=== PATIENT | male | born 1960 | race Caucasian/White ===

== ENCOUNTER 2016-09-19 08:41 | Day surgery (SDC) | payer BC ==
[~2016-09-19] VITALS: Ht 182.9 cm; Wt 111.6 kg
[2016-09-19] VITALS (404 sets, daily range): BP systolic 114–148; BP diastolic 68–93; PULSE 57–79; TEMP 98.1–98.4; O2SAT 87–100
[~2016-09-19 08:41] MED LIST: ASPIRIN 32325 MG/TAB PO; ASPIRIN 81M81 MG/TA2 PO; GLUCOPHAGE500 MG/TAB PO; HORIZANT600 MG PO; HUMALOG100 U/ML SQ; LANTUS100 U/ML SQ; LIPITOR 40MG TA40 MG PO; NEURONTIN600 MG/TAB PO; NITROQUICK0.4 MG SL; NORVASC 5MG5 MG/TAB PO; PLAVIX 75MG TAB75 MG PO; PRINIVIL10 MG PO; TOPROL XL 25MG25 MG PO; ZOCOR 20MG20 MG PO
[2016-09-19] MEDS ORDERED: NITROSTAT0.4 MG/TAB SL (09:14)
[2016-09-19] MEDS ORDERED: LEVEMIR100 U/ML SQ (09:50)
[2016-09-19 10:06] LABS: INR 1.1 (0.8-3.0); PROTHROMBIN TIME 12.1 SECONDS (9.7-12.8)
[2016-09-19 10:10] LABS: MEAN CELL VOLUME 84 fl (80.0-100.0); MEAN CORPUSCULAR HEMOGLOBIN 29 pg (27.0-31.0); MEAN CORPUSCULAR HGB CONC 35 g/dl (33.0-37.0); MEAN PLATELET VOLUME 9.4 fl (7.4-10.4); PLATELET COUNT 199 K/mm3 (130-400); RED BLOOD COUNT 4.09 M/mm3 (4.20-5.60); REDCELL DISTRIBUTION WIDTH-CV 16.8 % (11.5-14.5)
[2016-09-19 10:16] LABS: CALCIUM 9.2 mg/dL (8.4-10.2); CREATININE, serum 0.83 mg/dL (0.66-1.25); POTASSIUM 4.2 mmol/L (3.4-5.0)
[2016-09-19 10:25] LABS: HEMATOCRIT 34.4 % (42.0-52.0)
[2016-09-20] VITALS (140 sets, daily range): BP systolic 112–124; BP diastolic 57–73; PULSE 69–77; TEMP 97.7–98.4; O2SAT 92–100
[2016-09-20 06:06] LABS: BASO # 0.1 (0.0-0.2); BASO % 0.6 % (0.0-2.0); EOS # 0.1 (0.0-0.7); EOS % 1.4 % (0-4.0); GRAN # 6.7 (1.4-6.5); GRAN % 78.4 % (42.2-75.2); LYMPH # 1.1 (1.2-3.4); LYMPH % 12.3 % (20.0-51.0); MEAN CELL VOLUME 85 fl (80.0-100.0); MEAN CORPUSCULAR HGB CONC 34 g/dl (33.0-37.0); MEAN PLATELET VOLUME 9.6 fl (7.4-10.4); MONO # 0.6 (0.1-0.6); MONO % 6.6 % (1.7-9.3); PLATELET COUNT 208 K/mm3 (130-400); RED BLOOD COUNT 3.91 M/mm3 (4.20-5.60); WHITE BLOOD COUNT 8.5 K/mm3 (4.8-10.8)
[2016-09-20 06:12] LABS: HEMATOCRIT 33.2 % (42.0-52.0); HEMOGLOBIN 11.3 g/dl (13.5-18.0); MEAN CORPUSCULAR HEMOGLOBIN 29 pg (27.0-31.0)
[2016-09-20 06:15] LABS: CALCIUM 9.1 mg/dL (8.4-10.2); CREATININE, serum 0.91 mg/dL (0.66-1.25); POTASSIUM 3.8 mmol/L (3.4-5.0)
[2016-09-20] MEDS ORDERED: BRILINTA90 MG PO (10:10)
[2016-09-20] MEDS ORDERED: LIPITOR 80MG80 MG PO (10:13)
[2016-09-20] MEDS ORDERED: NITRO-DUR0.4 MG/PAT TD (10:18)
== END 2016-09-20 11:30 | disposition home or self-care (01) ==
LOC: EUO 08:41 → IMCU 11:58 → EUO 09-20 11:30
PROVIDERS: Internal Medicine Cardiovascular Disease
DX: I25.10 Atherosclerotic heart disease of native coronary artery without angina pectoris (principal); I25.82 Chronic total occlusion of coronary artery; R94.39 Abnormal result of other cardiovascular function study; G47.33 Obstructive sleep apnea (adult) (pediatric); E78.5 Hyperlipidemia, unspecified; R07.89 Other chest pain; I12.9 Hypertensive chronic kidney disease with stage 1 through stage 4 chronic kidney disease, or unspecified chronic kidney disease; E11.22 Type 2 diabetes mellitus with diabetic chronic kidney disease; N18.9 Chronic kidney disease, unspecified; Z95.5 Presence of coronary angioplasty implant and graft; Z79.82 Long term (current) use of aspirin; Z79.899 Other long term (current) drug therapy; Z79.84 Long term (current) use of oral hypoglycemic drugs; Z79.4 Long term (current) use of insulin
CPT/HCPCS: OP; C1725; C1760; C1769; C1874; C1887; C9600; J0583; J2250; J2405; J3010; J3410; Q9967

== ENCOUNTER 2016-10-27 06:09 | Day surgery (SDC) | payer BC ==
[2016-10-27] VITALS (378 sets, daily range): BP systolic 102–142; BP diastolic 67–83; PULSE 59–82; TEMP 97.7–98.4; O2SAT 92–100
[~2016-10-27] VITALS: Ht 180.3 cm; Wt 105.0 kg
[~2016-10-27 06:09] MED LIST changes: +BRILINTA90 MG PO; +LEVEMIR100 U/ML SQ; +LIPITOR 80MG80 MG PO; +NITRO-DUR0.4 MG/PAT TD; +NITROSTAT0.4 MG/TAB SL
[2016-10-27 06:46] LABS: HEMOGLOBIN 12.1 g/dl (13.5-18.0); MEAN CELL VOLUME 86 fl (80.0-100.0); MEAN CORPUSCULAR HEMOGLOBIN 29 pg (27.0-31.0); MEAN CORPUSCULAR HGB CONC 34 g/dl (33.0-37.0); MEAN PLATELET VOLUME 9.3 fl (7.4-10.4); PLATELET COUNT 203 K/mm3 (130-400); RED BLOOD COUNT 4.15 M/mm3 (4.20-5.60); REDCELL DISTRIBUTION WIDTH-CV 16.1 % (11.5-14.5)
[2016-10-27 06:57] LABS: CALCIUM 9.5 mg/dL (8.4-10.2); CREATININE, serum 0.92 mg/dL (0.66-1.25); POTASSIUM 4.4 mmol/L (3.4-5.0)
[2016-10-27 07:03] LABS: HEMATOCRIT 35.6 % (42.0-52.0)
[2016-10-27] MEDS ORDERED: NEURONTIN600 MG/TAB PO ×2 (07:04→07:05)
[2016-10-27 07:08] LABS: INR 1.1 (0.8-3.0); PROTHROMBIN TIME 11.9 SECONDS (9.7-12.8)
[2016-10-28] VITALS: BP 115/58; PULSE 66; TEMP 98.4
[2016-10-28 04:00] VITALS: BP 116/64; PULSE 72; TEMP 97.7
[2016-10-28 05:52] LABS: BASO % 0.4 % (0.0-2.0); EOS # 0.2 (0.0-0.7); EOS % 2.3 % (0-4.0); GRAN # 5.7 (1.4-6.5); GRAN % 78.6 % (42.2-75.2); LYMPH # 0.8 (1.2-3.4); LYMPH % 11.5 % (20.0-51.0); MEAN CELL VOLUME 86 fl (80.0-100.0); MEAN CORPUSCULAR HGB CONC 34 g/dl (33.0-37.0); MEAN PLATELET VOLUME 9.5 fl (7.4-10.4); MONO # 0.5 (0.1-0.6); MONO % 6.8 % (1.7-9.3); PLATELET COUNT 172 K/mm3 (130-400); RED BLOOD COUNT 3.86 M/mm3 (4.20-5.60); REDCELL DISTRIBUTION WIDTH-CV 16.2 % (11.5-14.5); WHITE BLOOD COUNT 7.2 K/mm3 (4.8-10.8)
[2016-10-28 06:04] LABS: CALCIUM 9.3 mg/dL (8.4-10.2); CREATININE, serum 0.91 mg/dL (0.66-1.25); POTASSIUM 4.2 mmol/L (3.4-5.0)
[2016-10-28 06:22] LABS: HEMOGLOBIN 11.3 g/dl (13.5-18.0); MEAN CORPUSCULAR HEMOGLOBIN 29 pg (27.0-31.0)
[2016-10-28 07:33] VITALS: BP 130/82; PULSE 87; TEMP 98.2
[2016-10-28] MEDS ORDERED: NORVASC2.5 MG PO (09:56)
[2016-10-28] MEDS ORDERED: PLAVIX 75MG TAB75 MG PO (09:57)
== END 2016-10-28 10:40 | disposition home or self-care (01) ==
LOC: EUO 06:09 → COL.CAR 06:30 → ICU 10:45 → EUO 10-28 10:40
PROVIDERS: Internal Medicine Cardiovascular Disease
DX: I25.10 Atherosclerotic heart disease of native coronary artery without angina pectoris (principal); I12.9 Hypertensive chronic kidney disease with stage 1 through stage 4 chronic kidney disease, or unspecified chronic kidney disease; E11.22 Type 2 diabetes mellitus with diabetic chronic kidney disease; N18.9 Chronic kidney disease, unspecified; R01.1 Cardiac murmur, unspecified; E78.2 Mixed hyperlipidemia; G47.33 Obstructive sleep apnea (adult) (pediatric)
CPT/HCPCS: OP; C1725; C1760; C1769; C1874; C1887; J0583; J1815; J2250; J3010; Q9967

== ENCOUNTER 2016-11-17 09:01 | Day surgery (SDC) | payer BC ==
[2016-11-17] VITALS (383 sets, daily range): BP systolic 105–144; BP diastolic 53–98; PULSE 55–75; TEMP 96.7–99; O2SAT 89–100
[~2016-11-17] VITALS: Ht 180.3 cm; Wt 104.5 kg
[~2016-11-17 09:01] MED LIST changes: +NORVASC2.5 MG PO
[2016-11-17 10:14] LABS: MEAN CELL VOLUME 85 fl (80.0-100.0); MEAN CORPUSCULAR HGB CONC 34 g/dl (33.0-37.0); MEAN PLATELET VOLUME 9.3 fl (7.4-10.4); PLATELET COUNT 195 K/mm3 (130-400); RED BLOOD COUNT 3.84 M/mm3 (4.20-5.60); REDCELL DISTRIBUTION WIDTH-CV 16.9 % (11.5-14.5); WHITE BLOOD COUNT 5.8 K/mm3 (4.8-10.8)
[2016-11-17 10:20] LABS: HEMATOCRIT 32.7 % (42.0-52.0); HEMOGLOBIN 11.2 g/dl (13.5-18.0); INR 1.1 (0.8-3.0); MEAN CORPUSCULAR HEMOGLOBIN 29 pg (27.0-31.0)
[2016-11-17 10:25] LABS: CALCIUM 9.6 mg/dL (8.4-10.2); CREATININE, serum 0.91 mg/dL (0.66-1.25); POTASSIUM 4.4 mmol/L (3.4-5.0)
[2016-11-18] VITALS (517 sets, daily range): BP systolic 104–121; BP diastolic 68–71; PULSE 72–86; TEMP 98–98.7; O2SAT 87–99
[2016-11-18 06:00] LABS: MEAN CELL VOLUME 85 fl (80.0-100.0); MEAN CORPUSCULAR HGB CONC 34 g/dl (33.0-37.0); MEAN PLATELET VOLUME 9.2 fl (7.4-10.4); PLATELET COUNT 191 K/mm3 (130-400); REDCELL DISTRIBUTION WIDTH-CV 16.7 % (11.5-14.5)
[2016-11-18 06:02] LABS: CALCIUM 9.2 mg/dL (8.4-10.2); CREATININE, serum 1.02 mg/dL (0.66-1.25); POTASSIUM 4.1 mmol/L (3.4-5.0)
[2016-11-18 06:03] LABS: HEMATOCRIT 32.3 % (42.0-52.0); HEMOGLOBIN 11.1 g/dl (13.5-18.0); MEAN CORPUSCULAR HEMOGLOBIN 29 pg (27.0-31.0)
[2016-11-18] MEDS ORDERED: RANEXA 500MG T500 MG PO (09:29)
== END 2016-11-18 12:05 | disposition home or self-care (01) ==
LOC: EUO 09:01 → COL.CAR 09:15 → IMCU 12:28 → EUO 11-18 12:05
PROVIDERS: Internal Medicine Cardiovascular Disease
DX: I25.10 Atherosclerotic heart disease of native coronary artery without angina pectoris (principal); Z95.5 Presence of coronary angioplasty implant and graft; I12.9 Hypertensive chronic kidney disease with stage 1 through stage 4 chronic kidney disease, or unspecified chronic kidney disease; E11.22 Type 2 diabetes mellitus with diabetic chronic kidney disease; N18.9 Chronic kidney disease, unspecified; G47.33 Obstructive sleep apnea (adult) (pediatric); R01.1 Cardiac murmur, unspecified
CPT/HCPCS: OP; C1725; C1760; C1769; C1874; C1887; J0583; J1815; J2250; J2405; J3010; Q9967

== ENCOUNTER 2018-06-13 09:04 | Day surgery (SDC) | payer BC ==
[~2018-06-13] VITALS: Ht 180.3 cm; Wt 102.3 kg
[2018-06-13] VITALS (421 sets, daily range): BP systolic 110–155; BP diastolic 53–100; PULSE 65–83; TEMP 98–98.8; O2SAT 89–100
[~2018-06-13 09:04] MED LIST changes: +RANEXA 500MG T500 MG PO
[2018-06-13] MEDS ORDERED: CELEXA 20MG20 MG/TAB PO (09:22)
[2018-06-13] MEDS ORDERED: ISOSORBIDE MON120 MG PO (09:23)
[2018-06-13 09:46] LABS: HEMOGLOBIN 12.7 g/dl (13.5-18.0); MEAN CELL VOLUME 86 fl (80.0-100.0); MEAN CORPUSCULAR HEMOGLOBIN 30 pg (27.0-31.0); MEAN CORPUSCULAR HGB CONC 35 g/dl (33.0-37.0); MEAN PLATELET VOLUME 9.5 fl (7.4-10.4); PLATELET COUNT 205 K/mm3 (130-400); RED BLOOD COUNT 4.18 M/mm3 (4.20-5.60); REDCELL DISTRIBUTION WIDTH-CV 15.5 % (11.5-14.5)
[2018-06-13 09:47] LABS: PROTHROMBIN TIME 11.2 SECONDS (9.7-12.8)
[2018-06-13 09:51] LABS: CALCIUM 9.8 mg/dL (8.4-10.2); CREATININE, serum 0.77 mg/dL (0.66-1.25); POTASSIUM 4.6 mmol/L (3.4-5.0)
[2018-06-13 09:58] LABS: HEMATOCRIT 35.9 % (42.0-52.0)
[2018-06-14] VITALS (458 sets, daily range): BP systolic 110–138; BP diastolic 53–81; PULSE 67–71; TEMP 98.1–98.8; O2SAT 82–99
[2018-06-14 05:24] LABS: BASO % 0.4 % (0.0-2.0); EOS # 0.2 (0.0-0.7); EOS % 2.4 % (0-4.0); GRAN # 5.7 (1.4-6.5); GRAN % 76.6 % (42.2-75.2); HEMOGLOBIN 11.6 g/dl (13.5-18.0); LYMPH # 0.9 (1.2-3.4); LYMPH % 11.4 % (20.0-51.0); MEAN CELL VOLUME 86 fl (80.0-100.0); MEAN CORPUSCULAR HEMOGLOBIN 30 pg (27.0-31.0); MEAN CORPUSCULAR HGB CONC 35 g/dl (33.0-37.0); MEAN PLATELET VOLUME 9.4 fl (7.4-10.4); MONO # 0.7 (0.1-0.6); MONO % 8.8 % (1.7-9.3); PLATELET COUNT 175 K/mm3 (130-400); RED BLOOD COUNT 3.81 M/mm3 (4.20-5.60); REDCELL DISTRIBUTION WIDTH-CV 15.3 % (11.5-14.5)
[2018-06-14 05:25] LABS: HEMATOCRIT 32.8 % (42.0-52.0)
[2018-06-14 05:43] LABS: CALCIUM 9.2 mg/dL (8.4-10.2); CREATININE, serum 0.83 mg/dL (0.66-1.25); POTASSIUM 4.2 mmol/L (3.4-5.0)
== END 2018-06-14 12:30 | disposition home or self-care (01) ==
LOC: COL.CAR 09:04 → ICU 15:00 → COL.CAR 06-14 12:30
PROVIDERS: Internal Medicine Cardiovascular Disease
DX: T82.855A Stenosis of coronary artery stent, initial encounter (principal); I25.110 Atherosclerotic heart disease of native coronary artery with unstable angina pectoris; I10 Essential (primary) hypertension
CPT/HCPCS: OP; C1725; C1760; C1769; C1874; C1887; C1894; C9600; J1644; J1815; J2250; J3010; Q9967

== ENCOUNTER 2018-07-02 10:50 | Emergency (ER) | payer BC ==
[~2018-07-02] VITALS: Ht 182.9 cm; Wt 104.5 kg
[~2018-07-02 10:50] MED LIST changes: +CELEXA 20MG20 MG/TAB PO; +ISOSORBIDE MON120 MG PO
[2018-07-02 11:05] VITALS: TEMP 96.8
[2018-07-02 13:15] LABS: BASO # 0.1 (0.0-0.2); BASO % 0.6 % (0.0-2.0); EOS # 0.2 (0.0-0.7); EOS % 1.7 % (0-4.0); GRAN # 6.5 (1.4-6.5); GRAN % 76.2 % (42.2-75.2); HEMATOCRIT 38.4 % (42.0-52.0); HEMOGLOBIN 13.7 g/dl (13.5-18.0); LYMPH # 1.2 (1.2-3.4); LYMPH % 14.2 % (20.0-51.0); MEAN CELL VOLUME 86 fl (80.0-100.0); MEAN CORPUSCULAR HEMOGLOBIN 31 pg (27.0-31.0); MEAN CORPUSCULAR HGB CONC 36 g/dl (33.0-37.0); MONO # 0.6 (0.1-0.6); MONO % 6.6 % (1.7-9.3); PLATELET COUNT 213 K/mm3 (130-400); RED BLOOD COUNT 4.45 M/mm3 (4.20-5.60); REDCELL DISTRIBUTION WIDTH-CV 15.9 % (11.5-14.5)
[2018-07-02 13:16] LABS: ALBUMIN 4.3 gm/dL (3.5-5.0); BILIRUBIN,TOTAL 1.3 mg/dL (0.0-1.0); CALCIUM 9.5 mg/dL (8.4-10.2); CREATININE, serum 0.77 mg/dL (0.66-1.25); POTASSIUM 4.5 mmol/L (3.4-5.0); TOTAL PROTEIN 7.2 gm/dL (6.4-8.2)
[2018-07-02 13:34] LABS: TROPONIN-I 0.129 ng/mL (0.000-0.034)
[2018-07-02] MEDS ORDERED: NEURONTIN600 MG/TAB PO (15:07)
[2018-07-02 15:51] VITALS: BP 117/67; PULSE 67
== END 2018-07-02 15:40 | disposition other institution (70) ==
LOC: COL.ER 10:50
PROVIDERS: Emergency Medicine
DX: R07.9 Chest pain, unspecified (principal); Z86.79 Personal history of other diseases of the circulatory system; Z95.9 Presence of cardiac and vascular implant and graft, unspecified; Z95.5 Presence of coronary angioplasty implant and graft; Z79.4 Long term (current) use of insulin; Z79.82 Long term (current) use of aspirin; Z79.02 Long term (current) use of antithrombotics/antiplatelets
CPT/HCPCS: J1170; J1644; J2250; J3010; J7030; Q9967